=== PATIENT | female | born 1975 ===

== ENCOUNTER 2018-03-11 08:19 | Outpatient (CLI) | payer OTHER | END 2018-03-11 08:35 | disposition home or self-care (01) | LOC: OFIC 805 08:19 | DX: H90.6 Mixed conductive and sensorineural hearing loss, bilateral (principal); H61.23 Impacted cerumen, bilateral; H69.83 Other specified disorders of Eustachian tube, bilateral; Q37.1 Cleft hard palate with unilateral cleft lip ==